=== PATIENT | male | born 1980 ===

== ENCOUNTER 2018-02-06 11:59 | Emergency (ER) | payer SELFPAY ==
[~2018-02-06] VITALS: Ht 172.7 cm; Wt 86.6 kg
[2018-02-06 12:14] VITALS: Ht 172.7 cm; Wt 86.6 kg
[2018-02-06 13:12] VITALS: BP 124/81
== END 2018-02-06 13:12 | disposition home or self-care (01) ==
LOC: ED 11:59
DX: R51 Headache (principal); R42 Dizziness and giddiness
CPT/HCPCS: 82962